=== PATIENT | female | born 1950 ===

== ENCOUNTER → 2021-06-29 10:28 | Outpatient (BNVA) | payer OTHER, SELFPAY | PROVIDERS: PCP Family Medicine; Visit Provider Psychiatry & Neurology Neurology ==

== ENCOUNTER → 2021-08-31 10:30 | Outpatient (BNVA) | payer OTHER, SELFPAY | PROVIDERS: PCP Family Medicine; Visit Provider Psychiatry & Neurology Neurology | DX: G47.33 Obstructive sleep apnea (adult) (pediatric) (principal); M54.9 Dorsalgia, unspecified; G47.00 Insomnia, unspecified; G25.81 Restless legs syndrome | CPT/HCPCS: 99212 ==

== ENCOUNTER → 2022-07-04 08:29 | Outpatient (BNVA) | payer OTHER, SELFPAY | PROVIDERS: Visit Provider Psychiatry & Neurology Neurology | DX: Z13.89 Encounter for screening for other disorder (principal) ==

== ENCOUNTER 2023-10-07 09:27 | Outpatient (AMB) | payer OTHER, SELFPAY ==
--- NOTE | 2023-10-07 09:35 | MHC.OFFVIS ---
Vital Signs 10/07/23 09:38 Height 5 ft 6 in Weight 175 lb 6 oz BMI 28.3 BP 146/80 H Blood Pressure Location Rt brachial Position Sitting Respiration 16 Pulse 61 Pulse Source Pulse Oximeter Pulse Oximetry (%) 96 Oxygen Delivery Method Room Air Intake Visit Reasons: 1yr follow up - LVM w/add Intake Note: Pt presents for a one year follow up for back pain and restless legs. 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 she is using CPAP. Her repeat HST showed mild sleep apnea AHI 10/hr O2 antonella 85% she is on ropinirole and gabapentin as she did not think pregabalin was helping. she had decompression laminectomy at [facility] in Jan 2021- it helped her sciatica but still has back pain. [facility] Medical History Chronic back pain Insomnia Restless legs syndrome Obstructive sleep apnea Hyperlipidemia HTN (hypertension) Asthma Anemia Surgical History Hx of laminectomy History of back surgery Family History Father Cancer Mother Heart disease Social History Household Members: Spouse and Children Alcohol intake: current Alcohol intake frequency: holidays/special occasions only Patient Tobacco Use Status: Never used Tobacco Current occupational status: retired Physical Exam Vital Signs: Last Vital Signs Pulse 61 10/07/23 09:38 Resp 16 10/07/23 09:38 BP 146/80 H 10/07/23 09:38 Pulse Ox 96 10/07/23 09:38 Oxygen Delivery Method Room Air 10/07/23 09:38 BMI result Body Mass Index 28.3 Const General: cooperative, healthy appearing and comfortable Nutritional Appearance: average body habitus Orientation/consciousness: patient oriented x3 HEENT Head: Yes normal to inspection and Yes normocephalic Neck Other: severe neck tightness Neuro General: patient oriented x3, gait normal, tone normal and moves all extremities Cranial nerves: Yes CN's II-XII intact bilaterally Cognition (Neuro): normal cognition Gait exam (Neuro): Normal gait present Assessment & Plan Assessment & Plan (1) Chronic back pain: Code(s): M54.9 - Dorsalgia, unspecified; G89.29 - Other chronic pain Category: Medical (2) Insomnia: Code(s): G47.00 - Insomnia, unspecified Category: Medical (3) Restless legs syndrome: Code(s): G25.81 - Restless legs syndrome Category: Medical (4) Obstructive sleep apnea: Code(s): G47.33 - Obstructive sleep apnea (adult) (pediatric) Category: Medical Plan continue CPAP continue gabapentin 600mg qhs requip XL 2mg qhs Medications: Refilled gabapentin 600 mg PO BEDTIME 90 tabs 3RF ropinirole ER 2 mg PO BEDTIME 90 tabs 6RF Coding Level of Care Code Est Pt Level 4 (49462) Diagnoses Chronic back pain M54.9; G89.29 Insomnia G47.00 Restless legs syndrome G25.81 Obstructive sleep apnea G47.33
[2023-10-07 09:38] VITALS: BP 146/80; PULSE 61; RESP 16; O2SAT 96; BMI 28.3
== END 2023-10-07 09:50 | disposition home or self-care (01) ==
PROVIDERS: Visit Provider Psychiatry & Neurology Neurology
DX: M54.9 Dorsalgia, unspecified (principal); G89.29 Other chronic pain; G47.00 Insomnia, unspecified; G25.81 Restless legs syndrome; G47.33 Obstructive sleep apnea (adult) (pediatric)
CPT/HCPCS: 99214

== ENCOUNTER → 2023-10-07 09:27 | Outpatient (BNVA) | payer OTHER, SELFPAY | PROVIDERS: Visit Provider Psychiatry & Neurology Neurology ==